=== PATIENT | male | born 1950 | race Caucasian/White ===

== ENCOUNTER → 2019-07-20 | Outpatient (CLI) | payer OTHER | LOC: HYPER 09:33 | DX: S81.011A Laceration without foreign body, right knee, initial encounter (principal); L08.9 Local infection of the skin and subcutaneous tissue, unspecified; M25.462 Effusion, left knee; E78.5 Hyperlipidemia, unspecified; G89.29 Other chronic pain; I10 Essential (primary) hypertension; K21.9 Gastro-esophageal reflux disease without esophagitis; W45.8XXA Other foreign body or object entering through skin, initial encounter; Y93.G3 Activity, cooking and baking; Y92.89 Other specified places as the place of occurrence of the external cause; Y99.8 Other external cause status ==